=== PATIENT | female | born 1970 | race Caucasian/White ===

== ENCOUNTER 2017-06-08 08:31 | Emergency (ER) | payer MEDICAID ==
[~2017-06-08] VITALS: Ht 157.5 cm; Wt 69.0 kg
[2017-06-08] MEDS ORDERED: KETOROLAC 30MG/ML VIAL IV ONE (09:45)
[2017-06-08] MEDS ORDERED: MORPHINE SULFATE 4 MG/ML CPJ (NOT FOR IM USE) IV ONE (09:45)
[2017-06-08] MEDS ORDERED: ONDANSETRON HCL 4MG/2ML VIAL IV ONE (09:45)
[2017-06-08 09:58] LABS: BASOPHILS % 0.5 % (0.0-2.0); HEMATOCRIT. 40.8 % (36.0-48.0); LYMPHOCYTES % 9.8 % (20.0-50.0); MEAN CORPUSCULAR HEMOGLOBIN 29.8 pg (28.0-32.0); MEAN CORPUSCULAR VOLUME 86.8 fL (81.0-99.0); NEUTROPHILS % 82.7 % (40.0-76.0); PLATELET 259 x1000/uL (130-400); RED CELL DISTRIBUTION WIDTH 13.1 % (11.6-14.6)
[2017-06-08 10:11] LABS: CARBON DIOXIDE 29 mEq/L (21-32); CHLORIDE 97 mEq/L (98-107)
[2017-06-08 12:38] LABS: CLARITY URINE CLOUDY (CLEAR); COLOR URINE YELLOW (YELLOW); KETONES URINE TRACE (NEGATIVE); LEUKOCYTE ESTERASE URINE 3+ (NEGATIVE); NITRITE URINE NEGATIVE (NEGATIVE); OCCULT BLOOD URINE 2+ (NEGATIVE); PH URINE >=9.0 (4.5-8.0); PROTEIN URINE 1+ (NEGATIVE); SPECIFIC GRAVITY URINE 1.013 (1.005-1.030)
[2017-06-08] MEDS ORDERED: POTASSIUM CHLORIDE 20MEQ TABLET SR PO ONE (14:15)
[2017-06-08 16:19] VITALS: BP 110/69
== END 2017-06-08 16:21 | disposition home or self-care (01) ==
LOC: ER 08:41
DX: N83.202 Unspecified ovarian cyst, left side (principal); N39.0 Urinary tract infection, site not specified; D25.9 Leiomyoma of uterus, unspecified
CPT/HCPCS: 36415; 76830; 76856; 80053; 81001; 81025; 85025; 87077; 87086; 87186; 96374; 96375; 99285; J1885; J2270; J2405

== ENCOUNTER 2017-07-14 12:50 | Emergency (ER) | payer MEDICAID ==
[~2017-07-14] VITALS: Ht 160 cm; Wt 63.0 kg
[2017-07-14] MEDS ORDERED: LORAZEPAM 1MG TABLET PO ONE (15:15)
[2017-07-14] MEDS ORDERED: KETOROLAC 15MG/ML VIAL IM ONE (15:15)
[2017-07-14 16:03] VITALS: BP 146/89
== END 2017-07-14 16:45 | disposition left against medical advice (07) ==
LOC: ER 13:18
DX: M79.605 Pain in left leg (principal); F15.90 Other stimulant use, unspecified, uncomplicated; R10.9 Unspecified abdominal pain; F15.10 Other stimulant abuse, uncomplicated; V03.10XA Pedestrian on foot injured in collision with car, pick-up truck or van in traffic accident, initial encounter
CPT/HCPCS: 93005; 99283